=== PATIENT | female | born 1980 | race Two or more races ===

== ENCOUNTER 2018-04-17 14:19 | Emergency (ER) | payer MEDICAID ==
[~2018-04-17] VITALS: Ht 162.6 cm; Wt 72.6 kg
[~2018-04-17 14:19] MED LIST: PRENATAL TABLE1 EAC1 PO
[2018-04-17 15:25] VITALS: BP 134/87
[2018-04-17 15:33] VITALS: BP 125/85
--- NOTE | 2018-04-17 18:57 | Emergency Room Report ---
History of Present Illness General Chief Complaint: Pain Source: Patient Present Illness HPI 37-year-old female presents ED for evaluation. Patient complaining of headache and left-sided arm numbness. Started earlier today while reviewing paperwork. Pain is dull, frontal, 5 out of 10, nonradiating. Denies photophobia or blurry vision. Denies neck stiffness. Denies nausea or vomiting. Denies fevers or chills. Denies any slurred speech or facial droop. Denies any arm weakness. States she's had similar episodes in the past which of come and gone but has not seen a doctor for this yet. Denies chest pain or shortness of breath. No other aggravating relieving factors. Denies any other associated symptoms Allergies: Coded Allergies: No Known Allergies (Unverified , 04/17/18) Patient History Past Medical History: none Past Surgical History: none Pertinent Family History: none Social History: Denies: smoking, alcohol use, drug use Last Menstrual Period: 03/25/2018 Now: No Immunizations: UTD Reviewed Nursing Documentation: PMH: Agreed; PSxH: Agreed Nursing Documentation-PMH Past Medical History: No History, Except For Review of Systems All Other Systems: negative except mentioned in HPI Physical Exam Vital Signs Date Time Temp Pulse Resp B/P (MAP) Pulse Ox O2 Delivery O2 Flow Rate FiO2 04/17/18 14:46 98.4 84 14 134/87 100 Room Air Sp02 EP Interpretation: reviewed, normal General Appearance: no apparent distress, alert, GCS 15, non-toxic Head: normocephalic, atraumatic Eyes: bilateral eye normal inspection, bilateral eye PERRL, bilateral eye EOMI ENT: hearing grossly normal, normal pharynx, no angioedema, normal voice Neck: full range of motion, supple/symm/no masses Respiratory: chest non-tender, lungs clear, normal breath sounds, speaking full sentences Cardiovascular #1: regular rate, rhythm, no edema Cardiovascular #2: 2+ carotid (R), 2+ carotid (L), 2+ radial (R), 2+ radial (L) , 2+ dorsalis pedis (R), 2+ dorsalis pedis (L) Gastrointestinal: normal bowel sounds, non tender, soft, non-distended, no guarding, no rebound Rectal: deferred Genitourinary: normal inspection, no CVA tenderness Musculoskeletal: back normal, gait/station normal, normal range of motion, non- tender Neurologic: alert, oriented x3, responsive, 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 as tested, motor strength/tone normal, sensory intact, speech normal Psychiatric: judgement/insight normal, memory normal, mood/affect normal, no suicidal/homicidal ideation Reflexes: 3+ bicep (R), 3+ bicep (L), 3+ tricep (R), 3+ tricep (L), 3+ knee (R) , 3+ knee (L) Skin: normal color, no rash, warm/dry, well hydrated Lymphatic: no adenopathy Medical Decision Making Diagnostic Impression: Primary Impression: Cervical radiculopathy Additional Impression: Headache Qualified Codes: R51 - Headache ER Course 37-year-old female presents ED complaining of headache and arm numbness DifferentialCVA, migraine, cervical radiculopathy, atypical chest pain Patient placed in chair. After initial history physical exam reveals a female in no acute distress. Patient describes her headache starting after doing paperwork. states it always starts after doing paperwork. I asked patient if she wears glasses or contacts. States that she used to wear glasses but does not wear them anymore. I suggested the patient that she may need to start wearing glasses again and needs a ophthalmic evaluation. There is no nuchal rigidity. Cranial nerves II through XII grossly intact. No slurred speech or facial droop. I do not believe CT imaging is required at this time Patient has 5 out of 5 motor strength left upper extremity. I asked patient to raise her arm over her head and states that the numbness resolved. Clinical presentation consistent with cervical radiculopathy. Discussed findings with patient. EKGnormal sinus rhythm no acute ischemic changes interpreted by me Reassurance given to the patient. Safe for discharge close outpatient follow- up. Diagnosiscervical radiculopathy, headache Stable discharged to home. Follow-up with PMD. Return to ED if symptoms recur or worsen EKG Diagnostic Results Rate: normal Rhythm: NSR ST Segments: no acute changes ASA given to the pt in ED: No Rhythm Strip Diag. Results EP Interpretation: yes Rhythm: NSR, no PVC's, no ectopy Last Vital Signs Date Time Temp Pulse Resp B/P (MAP) Pulse Ox O2 Delivery O2 Flow Rate FiO2 04/17/18 15:33 98.0 85 24 125/85 100 Room Air Status: improved Disposition: HOME, SELF-CARE Condition: Stable Referrals: [facility],REFERR[facility] (PCP) Patient Instructions: Cervical Radiculopathy, [id number] Eddy Issa MD Apr 17, 2018 18:57
--- NOTE | 2018-04-18 16:33 | Cardiology Report ---
APPROVED REPORT EKG Measurement Heart [id number] Normal sinus rhythm Normal ECG
== END 2018-04-17 15:36 | disposition home or self-care (01) ==
LOC: EMR 15:20
DX: M54.12 Radiculopathy, cervical region (principal); R51 Headache
CPT/HCPCS: 93005; 99283